=== PATIENT | female | born 1965 | race African-American/Black ===

== ENCOUNTER → 2021-06-19 | Day surgery (SDC) | payer BC | END | disposition home or self-care (01) | LOC: JRADUS-SUR 09:47 | PROVIDERS: ATTEND Obstetrics & Gynecology | PROC: 0H9U3ZX Drainage of Left Breast, Percutaneous Approach, Diagnostic (ICD-10-PCS; principal; 2021-06-19) | DX: N60.32 Fibrosclerosis of left breast (principal) | CPT/HCPCS: 19083; 77065-TC; 87899; A4648 ==